=== PATIENT | female | born 1965 | race Native Hawaiian/Other Pacific Islander ===

== ENCOUNTER 2016-11-14 12:35 | Day surgery (SDC) | payer BC, OTHER ==
[2016-11-14] MEDS ORDERED: PROPOFOL 200 MG/20 ML BOTTLE IV ONE (12:36)
[2016-11-14] MEDS ORDERED: LIDOCAINE HCL 1% 20 ML VIAL MC ONE (12:36)
[2016-11-14] MEDS ORDERED: IV LACTATED RINGERS SOLUTION 1,000 ML BAG IV ONE (12:36)
== END 2016-11-14 15:32 | disposition home or self-care (01) ==
LOC: DS 12:35
PROVIDERS: ATTEND Internal Medicine Gastroenterology
DX: Z12.11 Encounter for screening for malignant neoplasm of colon (principal); K64.8 Other hemorrhoids; K29.70 Gastritis, unspecified, without bleeding; E66.8 Other obesity; Z68.29 Body mass index [BMI] 29.0-29.9, adult
CPT/HCPCS: 93005; A4217; A4663; J3490; J7120

== ENCOUNTER 2018-03-04 06:07 | Observation (INO) | payer BC, OTHER ==
[~2018-03-04] VITALS: Ht 165.1 cm; Wt 81.6 kg
[2018-03-04] MEDS ORDERED: CEFAZOLIN 100 ML IV ONE (06:21)
[2018-03-04 07:00] LABS: *BILIRUBIN,URIN NEGATIVE (NEGATIVE); *BLOOD, URINE 1+ (NEGATIVE); *CLARITY,URINE CLEAR (CLEAR); *COLOR,URINE YELLOW (YELLOW); *KETONES,URINE NEGATIVE (NEGATIVE); *PROTEIN,URINE NEGATIVE (NEGATIVE); *UROBILINOGEN,URINE 0.2 E.U./dl (NORMAL); LEUKOCYTE ESTERASE ,URINE NEGATIVE (NEGATIVE); NITRITE, URINE NEGATIVE (NEGATIVE); PH,URINE 5.5 (5.0-8.0); UGLUCOSE NEGATIVE (NEGATIVE)
[2018-03-04] MEDS ORDERED: POLYMYXIN B SULFATE 500,000 UNITS, BACITRACIN 50,000 UNITS, NORMAL SALINE 20 ML MC ONE ×3 (07:15)
[2018-03-04] MEDS ORDERED: LIDOCAINE HCL 1% 20 ML VIAL ONE (07:17)
[2018-03-04] MEDS ORDERED: BUPIVACAINE PF 0.5% 30 ML VIAL ONE (07:17)
[2018-03-04] MEDS ORDERED: MIDAZOLAM HCL 2 MG/2 ML VIAL ONE (07:22)
[2018-03-04] MEDS ORDERED: HYDROMORPHONE 2 MG/1 ML DISP.SYRIN ONE (07:22)
[2018-03-04 07:27] LABS: BACTERIA,URINE NONE SEEN /HPF (NONE SEEN); CALCIUM OXALATE CRYSTALS,UR MODERATE /HPF (NONE SEEN); RBC,URINE 0-3 /HPF (0-3); SQUAMOUS EPITHELIAL CELL,UR FEW /HPF (NONE SEEN); WBC,URINE 0-3 /HPF (0-3)
[2018-03-04 07:28] LABS: MUCUS,URINE MODERATE /LPF (0-FEW)
[2018-03-04] MEDS ORDERED: ONDANSETRON 4 MG/2 ML VIAL IV ONE (10:05)
[2018-03-04] MEDS ORDERED: LIDOCAINE HCL 2% 20 ML VIAL MC ONE (10:05)
[2018-03-04] MEDS ORDERED: CEFAZOLIN 1 G VIAL MC ONE (10:05)
[2018-03-04] MEDS ORDERED: PROPOFOL 200 MG/20 ML BOTTLE IV ONE (10:05)
[2018-03-04] MEDS ORDERED: DEXAMETHASONE SOD PHOSPHATE 4 MG INJ IV ONE (10:05)
[2018-03-04] MEDS ORDERED: SEVOFLURANE 250 ML BOTTLE IH ONE (10:05)
[2018-03-04] MEDS ORDERED: IV LACTATED RINGERS SOLUTION 1,000 ML BAG IV ONE (10:05)
[2018-03-04] MEDS ORDERED: BUPIVACAINE/EPI PF 0.5% 10 ML VIAL ONE (10:29)
[2018-03-04] MEDS ORDERED: ONDANSETRON 4 MG/2 ML VIAL ONE ×2 (12:55→14:59)
[2018-03-04] MEDS ORDERED: METOCLOPRAMIDE HCL 10 MG/2 ML VIAL ONE (15:17)
[2018-03-04] MEDS ORDERED: HYDR-3326 PO (17:37)
[2018-03-04] MEDS ORDERED: ACETAMINOPHEN 325 MG TABLET PO PRN ×2 (17:45→19:30)
[2018-03-04] MEDS ORDERED: ONDANSETRON 4 MG/2 ML VIAL IV PRN ×2 (17:45→19:30)
[2018-03-04] MEDS ORDERED: MAGNESIUM HYDROXIDE 30 ML LIQUID UDC PO PRN (17:45)
--- NOTE | 2018-03-04 17:58 | NUR ---
PATIENT ARRIVED AT 1640 VIA HOSPITAL BED FROM SURGERY FOR A HALLUX REMOVAL OF THE LEFT FOOT, PATIENT SEDATED AT THIS TIME, CURRENTLY ON 2 LITERS OF OXYGEN, SATURATION NOTED AT 100%, 155/94, 74 PULSE, NO FACIAL CUES OF PAIN, NO SIGNS OF DISTRESS NOTED, CALL LIGHT IN REACH, BED LOCKED AND IN LOWEST POSITION
[2018-03-04] MEDS ORDERED: IV NS 1000 ML 1,000 ML IV PRN ×2 (18:45→19:00)
[2018-03-04 19:00] VITALS: BP 139/79
--- NOTE | 2018-03-04 19:20 | NUR ---
RECEIVED PATIENT LYING IN BED. AAOX4. DENIES ANY PAIN OR SOB AT THIS TIME. ON O2 AT 2LPM VIA NC IN PLACE. O2 SAT 100%. BANDAGE ON LLE INTACT. CAPILLARY REFILL ON LEFT TOES LESS THAN 3 SECONDS, ALTHOUGH PAIN STILL FEELS LIKE BANDAGE/CAST TOO TIGHT AND NOTIFIED DR. DAY AND WILL COME AND MAKE A VISIT. IV SITE ON RIGHT WRIST INTACT AND PATENT. WILL START IVF PER ORDER. NEEDS ASSESSED AND ATTENDED TO. SAFETY MEASURE INITIATED AND CALL BERRY WITHIN REACH.
[2018-03-04] MEDS ORDERED: METOCLOPRAMIDE HCL 10 MG/2 ML VIAL IV PRN (19:30)
--- NOTE | 2018-03-04 21:00 | NUR ---
DR FELDER VISITED AND EXAMINED LLE BANDAGE/CAST AND LOOSEN IT UP. DR PLACED BACK NEW KERLIX AND BANDAGE. PATIENT FELT BETTER. WILL CONTINUE TO MONITOR.
--- NOTE | 2018-03-04 22:00 | NUR ---
PATIENT REFUSING IV THERAPY AND INSISTING TO REMOVE IV LINE ON LEFT WRIST. PATIENT STATED, "I DON'T NEED IT" "IM DRINKING WELL". HR COORDINATOR RACHEL MADE AWARE WELL DR. PÉREZ WITH ORDER TO INFORM RACHEL. IV LINE REMOVE AND IVF STOP.
--- NOTE | 2018-03-05 00:08 | NUR ---
INFORMED DR ZELAYA OF PATIENT CURRENT STATUS AND REFUSAL OF IVF AND DISCONTINUATION OF IV SITE AND STATES UNDERSTANDING. OBTAIN ORDER TO DISCONTINUE IV FLUIDS.
[2018-03-05 04:00] VITALS: BP 118/69
--- NOTE | 2018-03-05 05:30 | NUR ---
PATIENT REFUSED LAB DRAW THIS AM.
--- NOTE | 2018-03-05 06:07 | NUR ---
AAOX4. DENIES ANY PAIN OR SOB. O2 SAT 95% ON RA. BANDAGE ON LLE INTACT. ICE PACK PROVIDED TO LEFT LEG. NO FURTHER COMPLAIN OF NAUSEA. ABLE TO TRANSFER SELF AND AMBULATE WITH CRUTCHES IN THE BATHROOM. NEEDS ATTENDED TO AND MET. SAFETY MEASURE MAINTAINED AND CALL BERRY WITHIN REACH.
--- NOTE | 2018-03-05 10:25 | NUR ---
PATIENT DISCHARGED TO HOME. D/C TEACHING/INSTRUCTIONS PROVIDED, PT VERBALIZED UNDERSTANDING. BELONGING LIST DONE. PT HAS NO IV ACCESS. SPOUSE AT BEDSIDE.
--- NOTE | 2018-03-05 10:40 | NUR ---
PATIENT LEFT THE UNIT VIA WHEELCHAIR, ACCOMPANIED BY RN AND SPOUSE. PT IS ALERT, IN NO DISTRESS, CASK ON LEFT LOWER EXTREMITY CLEAN/DRY/INTACT. PT NO C/O OF NUMBNESS TINGLING, NO NAUSEA/VOMITING.
== END 2018-03-05 10:40 | disposition home or self-care (01) ==
LOC: DS 06:07 → MED 16:35 → INTOOBSV 16:35
PROVIDERS: ADMIT Podiatrist Foot & Ankle Surgery; ATTEND Internal Medicine
DX: T84.223A Displacement of internal fixation device of bones of foot and toes, initial encounter (principal); M20.12 Hallux valgus (acquired), left foot; Y83.8 Other surgical procedures as the cause of abnormal reaction of the patient, or of later complication, without mention of misadventure at the time of the procedure; Y92.89 Other specified places as the place of occurrence of the external cause; I10 Essential (primary) hypertension; E66.3 Overweight; Z68.30 Body mass index [BMI] 30.0-30.9, adult
CPT/HCPCS: 28297; 73630 ×2; 81001; A4649; A4663 ×2; G0378 ×18; J0690 ×2; J1100; J1170; J2250; J2405 ×4; J2765; J3490 ×6; J7030; J7120 ×3; C1713